=== PATIENT | male | born 1995 | race Caucasian/White ===

== ENCOUNTER 2024-04-01 16:52 | Emergency (ER) | payer OTHER ==
[~2024-04-01] VITALS: Ht 170.2 cm; Wt 73.0 kg
[2024-04-01 16:54] VITALS: O2SAT 96
[2024-04-01] MEDS: LEVETIRACETAM 500MG TABLET PO STA (17:40)
[2024-04-01 17:46] VITALS: BP 124/80; PULSE 90; RESP 16; TEMP 98.8
== END 2024-04-01 17:59 | disposition home or self-care (01) ==
LOC: ER 16:52
DX: G40.89 Other seizures (principal)
CPT/HCPCS: 99283